=== PATIENT | male | born 2000 | race African-American/Black ===

== ENCOUNTER 2023-11-18 20:14 | Emergency (ER) | payer OTHER ==
[~2023-11-18] VITALS: Ht 172.7 cm; Wt 86.5 kg
[2023-11-18] MEDS: KETOROLAC 30 MG/ML 1ML VIAL IV ONE (22:12)
[2023-11-18] MEDS: NS 1,000 ML IV ONE (22:12)
[2023-11-18] MEDS: diphenhydrAMINE 50MG/ML VIAL IV ONE (22:13)
[2023-11-18] MEDS: METOCLOPRAMIDE INJ 10MG/2ML VIAL IV ONE (22:13)
[2023-11-18 23:37] VITALS: BP 133/78; TEMP 96.9; O2SAT 98
== END 2023-11-18 23:43 | disposition home or self-care (01) ==
LOC: M ED 20:14
DX: G43.909 Migraine, unspecified, not intractable, without status migrainosus (principal)
CPT/HCPCS: 96361; 96374; 96375; 99284; J1100; J1200; J1885; J2765

== ENCOUNTER → 2024-04-16 | Outpatient (CLI) | payer OTHER | LOC: M CARPUL 12:49 | PROVIDERS: ATTEND Physician Assistant | DX: R06.09 Other forms of dyspnea (principal) ==

== ENCOUNTER → 2024-05-07 | Outpatient (CLI) | payer OTHER ==
[~2024-05-07] MED LIST: METHACHOLINE KIT (6 VIAL.NEB PREMIX) INH ONE
== END ==
LOC: M CARPUL 08:10
PROVIDERS: ATTEND Physician Assistant
DX: R06.09 Other forms of dyspnea (principal)